=== PATIENT | female | born 1970 | race Caucasian/White ===

== ENCOUNTER 2017-12-27 09:56 | Observation (INO) ==
--- NOTE | 2017-12-27 11:18 | Urology History & Physical ---
Date of Encounter: 12/27/17 Time of Encounter: 11:16 Assessment and Plan (1) Infection of implant Status: Acute Based on her presentation I strongly suspect that the InterStim is infected. Unfortunately this will require a explant of the battery and lead with washout of the wound. We will start IV antibiotics overnight with planned surgical procedure tomorrow. I suspect that her immunosuppressant potentially increased her risk for wound infection. Will take cultures at the time of the procedure. Qualifiers: Encounter type: initial encounter Qualified Code(s): T85.79XA - Infection and inflammatory reaction due to other internal prosthetic devices, implants and grafts, initial encounter History of Present Illness Chief complaint: Pain at InterStim site/fever HPI: Ms. Pereyra is a 47 year old female one week status post full InterStim implantation. She had some postop erythema which resolved with by mouth antibiotics. In the last 24 hours she is developed a fever to 101 degrees. She has mild malaise. Likely infected implant. Plan for admission and likely removal Past Med Surg Social Fam HX - Past Medical History Psychiatric history: no psych history - Past Surgical History Surgical History: hysterectomy - Social History Smoking Status: Never smoker Smokeless Tobacco Status: No Alcohol use: rarely Drug use: none Medications and Allergies HYDROcodone/Acet 5/325 mg [[place] 5-325 mg] 1 tab PO Q4H PRN 5 Days #10 tab 12/20 [Rx] Ibuprofen [Motrin] 200 - 400 mg PO Q4-6H PRN 12/20/17 [History] Mycophenolate Mofetil [Cellcept] 1,000 mg PO BID 12/20/17 [History] 3 Allergy/AdvReac Type Severity Reaction Status Date / Time promethazine [From Phenergan] AdvReac HIVES/ Verified 12/20/17 10:32 INCREASED HEART RATE Review of Systems - Constitutional chills, fever(s), malaise - EENT Nose, mouth and throat: no dizziness - Cardiovascular no chest pain - Respiratory no cough - Gastrointestinal no abdominal pain - Musculoskeletal back pain - Integumentary erythema - Neurological no confusion - Psychiatric no anxiety - Hematologic/Lymphatic no easy bruising - Allergic/Immunologic no throat swelling Exam - General physical appearance Present: well developed, no distress - Additional Findings Mild erythema around the InterStim site at last evaluation which was 4 days ago. Urology Results - Labs All other labs normal.
[2017-12-27] MEDS ORDERED: Ibuprofen 600 MG TABLET PO PRN (13:09)
[2017-12-27] MEDS ORDERED: Naloxone 0.4 MG/ML INJ IVP PRN (13:09)
[2017-12-27] MEDS ORDERED: OXYCODONE Oral CONC 10 MG/0.5 ML ORAL.SYG SL PRN (13:09)
[2017-12-27 13:30] LABS: Basophils # 0.1 K/mcL (0.0-0.2); Basophils % 0.7 %; Eosinophils # 0.5 K/mcL (0.0-0.6); Eosinophils % 6.2 %; Hematocrit 42.9 % (35.3-44.9); Hemoglobin 14.6 g/dL (11.5-15.4); Immature Granulocytes % 0.6 % (0-4); Lymphocytes # 2.8 K/mcL (0.6-4.6); Lymphocytes % 33.4 %; Mean Corpuscular Hemoglobin 31.7 pg (28.0-33.3); Mean Corpuscular Volume 93.1 fL (83.0-100.0); Monocytes # 0.5 K/mcL (0.0-1.3); Monocytes % 5.8 %; Neutrophils # 4.5 K/mcL (1.6-8.9); Platelet Count 341 K/mcL (140-400); Red Blood Count 4.61 M/mcL (3.82-4.97); Red Cell Distribution Width 12.5 % (11.5-14.5); Segmented Neutrophils % 53.3 %
[2017-12-27 13:48] LABS: BUN/Creatinine Ratio 27 (6-26); Blood Urea Nitrogen 19 mg/dL (6-20); Carbon Dioxide 26 mEq/L (23-29); Chloride 104 mEq/L (98-107); Glucose 82 mg/dL (70-105); Osmolality,Calculated 285 (280-300); Sodium 137 mEq/L (136-145); eGFR For African Americans > 60 (> 60); eGFR For Non-African Americans > 60 (> 60)
[2017-12-27] MEDS: Piperacillin/Tazobactam 3.375 GM in 0.9 % Sodium Chloride Mini Bag 100 ML IVPB SCH (14:50)
[2017-12-27] MEDS: 0.9 % Sodium Chloride 1,000 ML IVC SCH (14:50)
[2017-12-27] MEDS: *HR* HYDROcodone/Acet 5/325 mg TABLET PO PRN ×2 (14:51→20:19)
[2017-12-28] MEDS: Piperacillin/Tazobactam 3.375 GM in 0.9 % Sodium Chloride Mini Bag 100 ML IVPB SCH ×2 (00:35→08:05)
[2017-12-28] MEDS: *HR* HYDROcodone/Acet 5/325 mg TABLET PO PRN (00:43)
[2017-12-28] MEDS: 0.9 % Sodium Chloride 1,000 ML IVC SCH (04:47)
[2017-12-28] MEDS ORDERED: Bupivacaine/EPI 1:200k 0.25%PF 10 ML VIAL INFILT ONE ×2 (07:06→08:32)
--- NOTE | 2017-12-28 07:06 | Urology Progress Note ---
Date of Encounter: 12/28/17 Time of Encounter: 07:02 - Assessment and Plan (1) Infection of implant Current Visit: No Status: Acute Assessment and plan: long discussion with the patient this AM. she had no fever overnight and the redness is minimal. However, based on the erythema on saturday and reported fever to 101 the previous 2 nights there is a high clinical suspicion for an infected implant. we discussed a long course of ABX and observation rather than explant this AM. I am concerned it would eventually need removed. we both decided to proceed with removal of the implant and lead. should be able to discharge today. will take cultures. Qualifiers: Encounter type: initial encounter Qualified Code(s): T85.79XA - Infection and inflammatory reaction due to other internal prosthetic devices, implants and grafts, initial encounter Progress Note Subjective: still having pain Narrative: no fever overnight. still having pain at interstim site. Objective Initial Vital Signs Temp Pulse Resp BP Pulse Ox 98.1 F 75 15 143/83 98 12/27/17 14:50 12/27/17 14:50 12/27/17 14:50 12/27/17 14:50 12/27/17 14:50 - General physical appearance Present: no distress - Additional Exam some erythma that extends about 2 cm fromthe incision. improved from exam on saturday. no drainage. - Labs 12/27/17 13:16 12/27/17 13:16 Diabetes panel 12/27/17 Range/Units 13:16 Sodium 137 (136-145) mEq/L Potassium 4.0 (3.5-5.1) mEq/L Chloride 104 (98-107) mEq/L Carbon Dioxide 26 (23-29) mEq/L BUN 19 (6-20) mg/dL Creatinine 0.71 (0.60-1.20) mg/dL Glucose 82 (70-105) mg/dL Calcium 10.0 (8.6-10.3) mg/dL Calcium panel 12/27/17 Range/Units 13:16 Calcium 10.0 (8.6-10.3) mg/dL Pituitary panel 12/27/17 Range/Units 13:16 Sodium 137 (136-145) mEq/L Potassium 4.0 (3.5-5.1) mEq/L Chloride 104 (98-107) mEq/L Carbon Dioxide 26 (23-29) mEq/L BUN 19 (6-20) mg/dL Creatinine 0.71 (0.60-1.20) mg/dL Glucose 82 (70-105) mg/dL Calcium 10.0 (8.6-10.3) mg/dL Adrenal panel 12/27/17 Range/Units 13:16 Sodium 137 (136-145) mEq/L Potassium 4.0 (3.5-5.1) mEq/L Chloride 104 (98-107) mEq/L Carbon Dioxide 26 (23-29) mEq/L BUN 19 (6-20) mg/dL Creatinine 0.71 (0.60-1.20) mg/dL Glucose 82 (70-105) mg/dL Calcium 10.0 (8.6-10.3) mg/dL Consult Discharge Plan - Plan Referrals: Andrzej Francisco MD [Partnered Physician] -
[2017-12-28] MEDS ORDERED: Vancomycin 1,000 MG VIAL ONE (07:29)
[2017-12-28] MEDS ORDERED: Water for inj. (sterile) 10 ML IV ONE (07:30)
[2017-12-28] MEDS ORDERED: Albuterol 2.5 MG/3 ML NEBULIZER IH ONE (08:20)
--- NOTE | 2017-12-28 08:29 | Discharge Summary ---
Date of Encounter: 12/28/17 Time of Encounter: 08:29 - Discharge Diagnosis (1) Infection of implant Priority: Primary Status: Resolved Comments: s/p explant Qualifiers: Encounter type: initial encounter Qualified Code(s): T85.79XA - Infection and inflammatory reaction due to other internal prosthetic devices, implants and grafts, initial encounter - Hospital Course Hospital course: Ms. Pereyra is a 47 year old female admitted with suspected infected interstim. s/p explantation. plan to discharge after. - Time Spent with Patient Total time spent providing and/or coordinating discharge services: Labs on day of discharge: Labs from last 24 hours 12/28/17 12/27/17 12/27/17 05:27 13:16 13:16 WBC 8.4 RBC 4.61 Hgb 14.6 Hct 42.9 MCV 93.1 MCH 31.7 MCHC 34.0 RDW 12.5 Plt Count 341 MPV 10.0 Immature Gran % 0.6 Seg Neutrophils % 53.3 Lymphocytes % 33.4 Monocytes % 5.8 Eosinophils % 6.2 Basophils % 0.7 Neutrophils # 4.5 Lymphocytes # 2.8 Monocytes # 0.5 Eosinophils # 0.5 Basophils # 0.1 Sodium 137 Potassium 4.0 Chloride 104 Carbon Dioxide 26 BUN 19 Creatinine 0.71 Est GFR ( Amer) > 60 Est GFR (Non-Af Amer) > 60 BUN/Creatinine Ratio 27 H Glucose 82 POC Glucose 81 Calculated Osmolality 285 Calcium 10.0 - Discharge Medications Prescriptions: HYDROcodone/Acet 5/325 mg [[place] 5-325 mg] 1 tab PO Q4H PRN 5 Days #10 tablet PRN Reason: Mild To Moderate Pain Sulfamethoxazole/Trimeth DS [Bactrim DS] 1 each PO BID #20 tablet Home Medications: Ibuprofen [Motrin] 200 - 400 mg PO Q4-6H PRN 12/20/17 [History] Mycophenolate Mofetil [Cellcept] 1,000 mg PO BID 12/20/17 [History] HYDROcodone/Acet 5/325 mg [[place] 5-325 mg] 1 tab PO Q4H PRN 5 Days #10 tablet [Rx] Sulfamethoxazole/Trimeth DS [Bactrim DS] 1 each PO BID #20 tablet 12/28/17 [Rx] Allergies/Adverse Reactions: 3 Allergy/AdvReac Type Severity Reaction Status Date / Time promethazine [From Phenergan] AdvReac HIVES/ Verified 12/20/17 10:32 INCREASED HEART RATE Date of admission: 12/27/17 12:22 Primary care physician: Daniel Henao Consults: 12/27/17 13:24 Consult to Pastoral Services [CONS] Routine Comment: Discharging clinician: Ameya Hyde Anticipated date of discharge: 12/28/17 Exam Initial Vital Signs Temp Pulse Resp BP Pulse Ox 98.1 F 75 15 143/83 98 12/27/17 14:50 12/27/17 14:50 12/27/17 14:50 12/27/17 14:50 12/27/17 14:50 - General physical appearance Present: no distress - Patient Status Disposition: Home, Self-Care Condition: Good Functional capacity at discharge: independent ambulation Overall status at discharge: patient is progressing back to baseline - Discharge Instructions Follow Up With: Andrzej Francisco MD [Partnered Physician] - Ameya Hyde MD [Partnered Physician] - (my office will call to arrange drain removal ) Additional Instructions: OK to shower avoid baths or swimming ok to keep incision open to air drain LAUREL bulb as needed call if high fever >101 or significant illness. - Diet and Activity Activity: increase activity as tolerated Diet: advance to your usual diet
--- NOTE | 2017-12-28 08:35 | Operative Note ---
Date of procedure: 12/28/17 Pre-op diagnosis: infected interstim implantation Post-op diagnosis: same Procedure: removal of interstim battery and lead. Anesthesia: GETA Surgeon: Ameya Hyde Was there an assistant professor of history present: No Estimated blood loss (cc): 5 Specimen: cultures and battery/lead Condition: stable Disposition: PACU Procedure in Detail: Patient taken back to the OR and positioned prone on the OR table. MAC anesthesia was applied. SHe was prepped and draped in a sterile fashion. time out was performed and patient was properly identified. ~20 cc of 0.25% marcaine with epi was injected around the battery insertion site incision. There was minimal erythema at the time of surgery. I used yelena scissors to incise a few of the monocryl and vicryl sutures but was able to bluntly enter the battery pocket. There was a larger then expected amount of fluid returned but it was clear and appeared more consistant with serous fluid rather than pus. the fluid was cultured. I was able to remove the batter and cut the lead. I opened the lead exit site, hooked the lead with a hemostat and removed the lead in its entirety I irrigated the battery site with one liter of NS with one gram vanco. I elected to close the incision with 2-0 vicryl and 4-0 monocryl with steri strips. I did not place drain as there was no significant purulence. the lead exit site was closed with dermabound.
[2017-12-28] MEDS ORDERED: Ringers Solution, Lactated 1,000 ML ONE (08:38)
--- NOTE | 2017-12-28 09:12 | Discharge Summary ---
Date of Encounter: 12/28/17 Time of Encounter: 09:11 - Discharge Diagnosis (1) Infection of implant Priority: Primary Status: Resolved Qualifiers: Encounter type: initial encounter Qualified Code(s): T85.79XA - Infection and inflammatory reaction due to other internal prosthetic devices, implants and grafts, initial encounter - Hospital Course Hospital course: Ms. Pereyra is a 47 year old female - Time Spent with Patient Total time spent providing and/or coordinating discharge services: Labs on day of discharge: Labs from last 24 hours 12/28/17 12/27/17 12/27/17 05:27 13:16 13:16 WBC 8.4 RBC 4.61 Hgb 14.6 Hct 42.9 MCV 93.1 MCH 31.7 MCHC 34.0 RDW 12.5 Plt Count 341 MPV 10.0 Immature Gran % 0.6 Seg Neutrophils % 53.3 Lymphocytes % 33.4 Monocytes % 5.8 Eosinophils % 6.2 Basophils % 0.7 Neutrophils # 4.5 Lymphocytes # 2.8 Monocytes # 0.5 Eosinophils # 0.5 Basophils # 0.1 Sodium 137 Potassium 4.0 Chloride 104 Carbon Dioxide 26 BUN 19 Creatinine 0.71 Est GFR ( Amer) > 60 Est GFR (Non-Af Amer) > 60 BUN/Creatinine Ratio 27 H Glucose 82 POC Glucose 81 Calculated Osmolality 285 Calcium 10.0 - Discharge Medications Prescriptions: Fluconazole [Diflucan] 150 mg PO DAILY #3 tab HYDROcodone/Acet 5/325 mg [[place] 5-325 mg] 1 tab PO Q4H PRN 5 Days #10 tablet PRN Reason: Mild To Moderate Pain Sulfamethoxazole/Trimeth DS [Bactrim DS] 1 each PO BID #20 tablet Home Medications: Ibuprofen [Motrin] 200 - 400 mg PO Q4-6H PRN 12/20/17 [History] Mycophenolate Mofetil [Cellcept] 1,000 mg PO BID 12/20/17 [History] Fluconazole [Diflucan] 150 mg PO DAILY #3 tab 12/28/17 [Rx] HYDROcodone/Acet 5/325 mg [[place] 5-325 mg] 1 tab PO Q4H PRN 5 Days #10 tablet [Rx] Sulfamethoxazole/Trimeth DS [Bactrim DS] 1 each PO BID #20 tablet 12/28/17 [Rx] Allergies/Adverse Reactions: 3 Allergy/AdvReac Type Severity Reaction Status Date / Time promethazine [From Phenergan] AdvReac HIVES/ Verified 12/20/17 10:32 INCREASED HEART RATE Date of admission: 12/27/17 12:22 Primary care physician: Daniel Henao Consults: 12/27/17 13:24 Consult to Pastoral Services [CONS] Routine Comment: Exam Initial Vital Signs Temp Pulse Resp BP Pulse Ox 98.1 F 75 15 143/83 98 12/27/17 14:50 12/27/17 14:50 12/27/17 14:50 12/27/17 14:50 12/27/17 14:50 - Patient Status Disposition: Home, Self-Care Condition: Good - Discharge Instructions Follow Up With: Andrzej Francisco MD [Partnered Physician] - Ameya Hyde MD [Partnered Physician] - (my office will call to arrange drain removal ) Additional Instructions: OK to shower avoid baths or swimming ok to keep incision open to air drain LAUREL bulb as needed call if high fever >101 or significant illness.
--- NOTE | 2017-12-28 09:35 | Anesthesia Evaluation PreOp ---
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]) Anesthesia History: Past Anesthesia (Interstim placement 12/20/2017, Hyster), Problems (PONV) Alcohol Use: rarely Drug use: none Medications and Allergies Ibuprofen [Motrin] 200 - 400 mg PO Q4-6H PRN 12/20/17 [History] Mycophenolate Mofetil [Cellcept] 1,000 mg PO BID 12/20/17 [History] Fluconazole [Diflucan] 150 mg PO DAILY #3 tab 12/28/17 [Rx] HYDROcodone/Acet 5/325 mg [[place] 5-325 mg] 1 tab PO Q4H PRN 5 Days #10 tablet [Rx] Sulfamethoxazole/Trimeth DS [Bactrim DS] 1 each PO BID #20 tablet 12/28/17 [Rx] 3 Allergy/AdvReac Type Severity Reaction Status Date / Time promethazine [From Phenergan] AdvReac HIVES/ Verified 12/20/17 10:32 INCREASED HEART RATE - Meds/Allergy Pre-op Review Medications Reviewed: Yes Allergies Reviewed: Yes Beta Blockers on Current Med List: No Anesthesia Results - Labs 12/27/17 13:16 12/27/17 13:16 Laboratory Results WBC 8.4 K/mcL (4.3-11.1) 12/27/17 13:16 RBC 4.61 M/mcL (3.82-4.97) 12/27/17 13:16 Hgb 14.6 g/dL (11.5-15.4) 12/27/17 13:16 Hct 42.9 % (35.3-44.9) 12/27/17 13:16 MCV 93.1 fL (83.0-100.0) 12/27/17 13:16 MCH 31.7 pg (28.0-33.3) 12/27/17 13:16 MCHC 34.0 g/dL (31.6-35.5) 12/27/17 13:16 RDW 12.5 % (11.5-14.5) 12/27/17 13:16 Plt Count 341 K/mcL (140-400) 12/27/17 13:16 MPV 10.0 fL (9.4-12.4) 12/27/17 13:16 Immature Gran % 0.6 % (0-4) 12/27/17 13:16 Seg Neutrophils % 53.3 % 12/27/17 13:16 Lymphocytes % 33.4 % 12/27/17 13:16 Monocytes % 5.8 % 12/27/17 13:16 Eosinophils % 6.2 % 12/27/17 13:16 Basophils % 0.7 % 12/27/17 13:16 Neutrophils # 4.5 K/mcL (1.6-8.9) 12/27/17 13:16 Lymphocytes # 2.8 K/mcL (0.6-4.6) 12/27/17 13:16 Monocytes # 0.5 K/mcL (0.0-1.3) 12/27/17 13:16 Eosinophils # 0.5 K/mcL (0.0-0.6) 12/27/17 13:16 Basophils # 0.1 K/mcL (0.0-0.2) 12/27/17 13:16 Sodium 137 mEq/L (136-145) 12/27/17 13:16 Potassium 4.0 mEq/L (3.5-5.1) 12/27/17 13:16 Chloride 104 mEq/L (98-107) 12/27/17 13:16 Carbon Dioxide 26 mEq/L (23-29) 12/27/17 13:16 BUN 19 mg/dL (6-20) 12/27/17 13:16 Creatinine 0.71 mg/dL (0.60-1.20) 12/27/17 13:16 Est GFR ( Amer) > 60 (> 60) 12/27/17 13:16 Est GFR (Non-Af Amer) > 60 (> 60) 12/27/17 13:16 BUN/Creatinine Ratio 27 (6-26) H 12/27/17 13:16 Glucose 82 mg/dL (70-105) 12/27/17 13:16 POC Glucose 81 mg/dL (70-99) 12/28/17 05:27 Calculated Osmolality 285 (280-300) 12/27/17 13:16 Calcium 10.0 mg/dL (8.6-10.3) 12/27/17 13:16 Anesthesia Exam Vital Signs Temp Pulse Resp BP Pulse Ox 12/28/17 07:24 98.2 F 68 16 131/85 98 12/28/17 05:29 98.2 F 66 15 108/67 97 12/27/17 23:42 98.2 F 68 15 101/66 98 12/27/17 19:04 98.7 F 85 15 136/84 95 12/27/17 14:50 98.1 F 75 15 143/83 98 Intake and Output 12/27/17 12/28/17 12/28/17 23:59 07:59 15:59 Intake Total 820 / 820 1100 / 1100 0 / 0 Output Total 1300 / 1300 1000 / 1000 600 / 600 Balance -480 / -480 100 / 100 -600 / -600 Intake: IV Fluids 100 / 100 1100 / 1100 0.9 % Sodium Chloride 1,000 ML 1000 / 1000 @ 75 mls/hr IVC .[id number] BRIANA Rx #:[id number] Zosyn 3.375 GM In 0.9 % Sodium 100 / 100 100 / 100 Chloride (Mini-Bag +) 100 ML @ 25 mls/hr IVPB Q8HR BRIANA Rx#: [id number] Oral 720 / 720 0 / 0 0 / 0 Output: Urine 1300 / 1300 1000 / 1000 600 / 600 Other: Meal Lunch npo Percent of Meal Consumed 50% # Voids 1 Blood Glucose* 81 Height: 5'5" Weight: 155# BMI = 26 - HEENT Pupil (Motor): Pupils equal, EOMI Mallampati: II Teeth: Normal Oral Opening: Greater than 3 - [employer] LOC: Oriented [employer] Motor: Normal RUE, Normal LUE, Normal RLE, Normal LLE, Normal Face [employer] Sensory: Normal: RUE, LUE, RLE, LLE, Face - Cardiac Rhythm: Regular Murmur: None - Pulmonary Breath Sounds: bilateral Clear Respiratory Effort: Symmetrical Anesthesia Assess/Plan ASA Score: 2 Modified Nataliya Scale for Level of Consciousness: Cooperative, oriented, and tranquil Anesthetic Plan: MAC Monitoring Plan: Standard Monitors Recovery Plan: PACU Anes Supervising Prov Stmt: PT seen/evaluated, R&B discussed, questions answered and consent obtained. - MD Kwasi
[2017-12-28] MEDS ORDERED: Lidocaine -MPF 2% 2 ML VIAL ONE (09:46)
[2017-12-28] MEDS ORDERED: *HR* FentaNYL (PF) 100 MCG/2 ML VIAL ONE (09:46)
[2017-12-28] MEDS ORDERED: Propofol 500 MG/50 ML INFUS..BTL ONE (09:46)
[2017-12-28] MEDS ORDERED: *HR* Midazolam HCl 2 MG/2 ML VIAL ONE (09:47)
[2017-12-28] MEDS ORDERED: Acetaminophen IV 1,000 MG/100 ML INFUS..BTL ONE (09:53)
[2017-12-28] MEDS ORDERED: *HR* OxyCODONE Immed Rel 5 MG TABLET PO ONE (11:13)
[2017-12-28 13:32] VITALS: BP 119/75
--- NOTE | 2017-12-28 18:01 | Anesthesia Evaluation Post Op ---
Date of Encounter: 12/28/17 Time of Encounter: 11:50 - Vital Signs Vital Signs: Vital Signs Temp Pulse Resp BP Pulse Ox 12/28/17 13:05 97.7 F 82 16 119/75 96 12/28/17 12:35 98 F 72 16 113/70 97 12/28/17 12:05 98.4 F 120 16 102/67 100 12/28/17 11:49 98.6 F 59 16 100/72 99 12/28/17 11:39 60 16 115/69 99 12/28/17 11:29 61 16 98/56 99 12/28/17 11:19 98.7 F 64 16 106/60 98 12/28/17 11:09 66 16 105/59 99 12/28/17 10:59 68 12 99/62 98 12/28/17 10:54 67 12 107/74 100 12/28/17 10:49 98.9 F 81 10 110/61 99 12/28/17 07:24 98.2 F 68 16 131/85 98 12/28/17 05:29 98.2 F 66 15 108/67 97 12/27/17 23:42 98.2 F 68 15 101/66 98 12/27/17 19:04 98.7 F 85 15 136/84 95 Intake and Output 12/28/17 12/28/17 12/28/17 07:59 15:59 23:59 Intake Total 1100 / 1100 0 / 0 Output Total 1000 / 1000 605 / 605 Balance 100 / 100 -605 / -605 Intake: IV Fluids 1100 / 1100 0.9 % Sodium Chloride 1,000 ML 1000 / 1000 @ 75 mls/hr IVC .[id number] BRIANA Rx #:[id number] Zosyn 3.375 GM In 0.9 % Sodium 100 / 100 Chloride (Mini-Bag +) 100 ML @ 25 mls/hr IVPB Q8HR BRIANA Rx#: [id number] Oral 0 / 0 0 / 0 Output: Urine 1000 / 1000 600 / 600 Estimated Blood Loss 5 / 5 Other: Meal npo # Voids 1 Blood Glucose* 81 - Lungs Lungs: Clear Ascult./Percussion - Airway Airway: Non-obstructed - Cardiovascular Regular Rate - Mental Status Mental Status: Alert & Oriented, Answers Appropriately - Pain Pain Scale: 0 - Nausea Vomiting Nausea Vomiting: Not Present - Hydration Hydration: Tolerates oral liquids, Has not voided - Discharge PostOp Status: Transfer Patient to floor Anes Supervising Prov Stmt: Pt seen/evaluated, VSS And pt has met criteria for discharge to floor. -MD Kwasi
== END 2017-12-28 13:45 | disposition home or self-care (01) ==
LOC: 3ANU
PROVIDERS: ADMIT Urology; ATTEND Urology